=== PATIENT | male | born 1955 | race Caucasian/White ===

== ENCOUNTER → 2021-05-05 | Day surgery (SDC) | payer MEDICARE, OTHER ==
[~2021-05-05] VITALS: Ht 177.8 cm; Wt 99.8 kg
[~2021-05-05] MED LIST: ASPIRIN EC81 MG PO; CERTAGEN1 EACH PO; COZAAR50 MG PO; METAMUCIL1 DOSE PO; NEXIUM40 MG PO; NORCO 5-325 TA1 EACH PO; NORVASC5 MG PO; PRINIVIL10 MG PO; PROBIOTIC1 EAC1 PO
[2021-05-05 07:18] LABS: HCT 43.2 % (42.0-52.0); HGB 14.2 g/dl (13.2-18.0); MCH 27.2 pg (25.0-31.0); MCHC 32.9 g/dL (32.0-36.0); MCV 82.8 fL (78.0-100.0); MPV 10.5 fL (6.0-9.5); RBC 5.22 M/uL (4.70-6.00); WBC 7.2 K/uL (4.0-10.5)
[2021-05-05 07:22] LABS: BILIRUBIN NEGATIVE (NEGATIVE); BLOOD NEGATIVE Ery/uL (NEGATIVE); CLARITY CLEAR (CLEAR); COLOR YELLOW (YELLOW); GLUCOSE (U) NORMAL (NORMAL); LEUKOCYTES NEGATIVE Leu/uL (NEGATIVE); NITRITE NEGATIVE (NEGATIVE); PROTEIN NEGATIVE (NEGATIVE); SPECIFIC GRAVITY >=1.030 (1.001-1.030); UROBILINOGEN 0.2 mg/dL (0.2-1.0)
[2021-05-05 07:45] LABS: BUN/CREAT RATIO (CALC) 22.9 RATIO; CREATININE 0.83 mg/dL (0.67-1.17); POTASSIUM 4.4 mmol/L (3.5-5.1)
== END | disposition home or self-care (01) ==
LOC: FAS 05-01 07:00
PROVIDERS: Legal Medicine
DX: M75.101 Unspecified rotator cuff tear or rupture of right shoulder, not specified as traumatic (principal); M13.811 Other specified arthritis, right shoulder; M75.41 Impingement syndrome of right shoulder; G89.18 Other acute postprocedural pain; X58.XXXA Exposure to other specified factors, initial encounter; I10 Essential (primary) hypertension; G47.30 Sleep apnea, unspecified; K21.9 Gastro-esophageal reflux disease without esophagitis; Z88.0 Allergy status to penicillin; Z88.8 Allergy status to other drugs, medicaments and biological substances; Z79.82 Long term (current) use of aspirin; Z79.899 Other long term (current) drug therapy; Z99.89 Dependence on other enabling machines and devices; Z87.891 Personal history of nicotine dependence
CPT/HCPCS: 36415; 80048; 81003; 93005; C1713; J0171; J1100; J2250; J2704; J2795; J3010; J7120